=== PATIENT | male | born 1945 | race Caucasian/White ===

== ENCOUNTER → 2017-09-05 | Day surgery (SDC) | payer MEDICARE, BC ==
[~2017-09-05] MED LIST: ACETAMINOPHEN 1000 MG/100 ML 100 ML IV ONE; BUPIVACAINE/EPINEPHRINE 0.5% PF 10 ML VIAL ONE; LACTATED RINGER'S 1000 ML INJ 1,000 ML ONE; MIDAZOLAM HCL 2 MG/2 ML VIAL ONE; NEOMYCIN/POLYMYXIN/BACITRACIN OINT 15 GM TUBE ONE; ONDANSETRON HCL 4 MG/2 ML VIAL IV PUSH ONE; PROPOFOL 200 MG/20 ML AMP IV ONE
--- NOTE | 2017-09-05 09:58 | TN ---
cc: Javad Flynn MD DATE OF SURGERY: 09/05/2017 PREOPERATIVE DIAGNOSIS: 1. A 1.5 cm scalp lesion right anterior scalp. 2. A small raised, firm skin lesion right roman catholic area. 3. Two skin lesions left roman catholic area. POSTOPERATIVE DIAGNOSIS: 1. A 1.5 cm scalp lesion right anterior scalp. 2. A small raised, firm skin lesion right roman catholic area. 3. Two skin lesions left roman catholic area. 4. Pending permanent section. PROCEDURE: 1. Excision of scalp lesion with a 3 x 1.5 elliptical incision with double layer closure. 2. Elliptical excision left skin lesion, anterior 1 x 1.5 cm elliptical incision single layer closure. 3. A 3 mm punch biopsy of a skin lesion left roman catholic area, posterior. 4. Elliptical incision 1/2 x 0.5 cm right roman catholic area as a single layer closure. ANESTHESIA: TIVA. SURGEON: Dr. Flynn. INDICATIONS FOR PROCEDURE: This is a pleasant 71-year-old gentleman who has a scalp lesion on the top of his scalp on the right anterior region about a 1.5 cm. He also has a raised irregular skin lesion on his right roman catholic area and a similar one on the left roman catholic area and another one slightly larger a little bit more posterior on the roman catholic area. Plans were made for removal biopsy of all 4 lesions. PROCEDURE NOTE: The patient taken to the operating room, placed in the supine position. After achieving anesthesia, the area of questions were prepped with Betadine. We then directed our attention to the right anterior scalp lesion. An elliptical incision 3 x 1.5 cm is made to completely remove the offending lesion. This was done in an anterior to posterior direction with the anterior margin marked with a suture. It was anesthetized with a Marcaine solution and excised. The wound was then closed with an interrupted 3-0 nylon suture. We then directed our attention to the left roman catholic area where the 2 lesions are, the smaller one accommodates a 3 mm punch biopsy which was accomplished and sent and labeled. The second lesion, an elliptical incision made 1.5 x 0.5 cm is made and closed with a 4-0 nylon. The right roman catholic region, that had been prepped with Betadine, we made an elliptical incision 1.5 x 0.5 cm and sent down labeled as right roman catholic area lesion and closed with a 4-0 nylon interrupted. A sterile bandage was applied. The patient tolerated the procedure well, had no immediate postop complications. Javad Flynn MD JTIERNEY/EDILBERTO , 09:40 AM , 09:57 AM
== END | disposition home or self-care (01) ==
LOC: ESDC 07:36
PROVIDERS: ATTEND Surgery
DX: L82.1 Other seborrheic keratosis (principal); L57.0 Actinic keratosis
CPT/HCPCS: 00300; 11423; 11440; 11441; 11442; 12032; 88305; J0131; J2250; J2405; J3010; J7120